=== PATIENT | male | born 1980 | race Caucasian/White ===

== ENCOUNTER → 2020-11-01 | Outpatient (CLI) | payer BC ==
--- NOTE | 2020-11-01 10:56 | RAD ---
EXAM: XR FOOT_LEFT 3 VIEWS 11/01/2020 10:43 AM CLINICAL INDICATION: Left foot pain after total COMPARISON: None TECHNIQUE: 3 views of the left foot FINDINGS: There is a mildly displaced oblique fracture of the left fifth metatarsal shaft with overl karla soft tissue swelling. No other fracture. No dislocation. Joint spaces are maintained. There are small calcaneal enthesophytes. IMPRESSION: Mildly displaced fifth metatarsal shaft fracture. Electronically signed by: Dorothea Uribe MD (11/01/2020 10:54 AM) [id number]
== END ==
LOC: PMG 10:27
PROVIDERS: ATTEND Nurse Practitioner Family
DX: S99.922A Unspecified injury of left foot, initial encounter (principal); S92.352A Displaced fracture of fifth metatarsal bone, left foot, initial encounter for closed fracture; M77.32 Calcaneal spur, left foot; M79.89 Other specified soft tissue disorders; X58.XXXA Exposure to other specified factors, initial encounter; Y93.89 Activity, other specified; Y92.89 Other specified places as the place of occurrence of the external cause; Y99.8 Other external cause status
CPT/HCPCS: 73630

== ENCOUNTER → 2020-12-17 | Outpatient (CLI) | payer BC ==
--- NOTE | 2020-12-17 17:13 | RAD ---
EXAM: Left foot, 3 views. HISTORY: Fracture follow-up. COMPARISON: 11/01/2020 FINDINGS: 3 views of the left foot are obtained. There has been no significant interval healing or ch estephania in displacement of a mildly displaced fifth metatarsal fracture with approximately 1 cortical wi dth displacement along the fracture line. No new fracture is seen. There is a small plantar spur. The re is enthesopathy at the Achilles tendon insertion. IMPRESSION: No significant interval healing of a mildly displaced fifth metatarsal fracture. Electronically signed by: Ayana Harper MD (12/17/2020 5:11 PM) [id number]
== END ==
LOC: RAD 09:09
PROVIDERS: ATTEND Podiatrist
DX: M77.32 Calcaneal spur, left foot (principal); M76.62 Achilles tendinitis, left leg; M79.672 Pain in left foot
CPT/HCPCS: 73630

== ENCOUNTER → 2021-01-08 | Outpatient (CLI) | payer BC ==
--- NOTE | 2021-01-08 17:55 | RAD ---
XR FOOT_LEFT 3 VIEWS History: Foot pain. History of fracture. Comparison: 12/17/2020 Technique: 3 weightbearing views the left foot. Findings: Redemonstrated oblique diaphysis fracture left fifth metatarsal with progressive healing callus forma tion. No new fracture is identified. Mild degenerative changes of first metatarsophalangeal joint. Pl lesley calcaneal and Achilles insertion enthesophytes. Pes planus alignment. Impression: 1. Healing fracture of the fifth metatarsal. 2. Pes planus. Electronically signed by: Noel Barros MD (01/08/2021 5:52 PM) [id number]
== END ==
LOC: RAD 14:10
PROVIDERS: ATTEND Podiatrist
DX: S92.352D Displaced fracture of fifth metatarsal bone, left foot, subsequent encounter for fracture with routine healing (principal); M19.072 Primary osteoarthritis, left ankle and foot; M77.32 Calcaneal spur, left foot; M77.52 Other enthesopathy of left foot and ankle; X58.XXXD Exposure to other specified factors, subsequent encounter
CPT/HCPCS: 73630